=== PATIENT | female | born 1985 | race African-American/Black ===

== ENCOUNTER 2021-12-02 08:29 | Outpatient (CLI) | payer BC ==
[2021-12-02 09:39] LABS: #Basophils 0.1 10x3/uL (0.0-0.2); #Eosinphils 0.1 10x3/uL (0.0-0.5); #Monocytes 0.4 10x3/uL (0.0-1.1); #Neutrophils 2.7 10x3/uL (1.5-8.4); %Basophils 1.1 % (0.0-2.0); %Eosinophils 1.9 % (0.0-6.0); %Lymphocytes 33.1 % (18.0-47.0); %Monocytes 7.8 % (0.0-10.0); %Neutrophils 55.9 % (40.0-75.0); Hemoglobin 10.6 g/dL (12.0-15.5); Mean Corpuscular HGB CONC 32.2 g/dL (32.0-36.0); Mean Corpuscular Hemoglobin 28.3 pg (27.0-33.0); Mean Platelet Volume 10.8 fl (7.4-10.4); Platelet Count 300 10x3/uL (150-450); RBC Distribution Width 13.4 % (11.5-14.5); Red Blood Cell (RBC) Count 3.74 10x6/uL (3.90-5.03); White Blood Cell (WBC) Count 4.7 10x3/uL (3.5-10.5)
[2021-12-02 10:21] LABS: BHCG - Serum Negative (NEGATIVE); Pregs Control Background? CLEAR/WHITE (CLR/WHITE); Pregs Control Bar Appear? YES (CONTROL BAR)
== END 2021-12-02 08:30 | disposition home or self-care (01) ==
LOC: LABBT 08:29
PROVIDERS: ATTEND Surgery
DX: Z01.812 Encounter for preprocedural laboratory examination (principal); R22.31 Localized swelling, mass and lump, right upper limb; Z20.822 Contact with and (suspected) exposure to COVID-19
CPT/HCPCS: 84703; 85025; 87811

== ENCOUNTER 2021-12-05 07:55 | Day surgery (SDC) | payer BC ==
[2021-12-03 12:08] VITALS: BMI 21.8
[2021-12-05] MEDS ORDERED: CEFAZOLIN 2 GM VIAL ONE ×2 (08:13→08:51)
[2021-12-05] MEDS ORDERED: Lidocaine 1% MPF 2 ML VIAL ONE (08:13)
[2021-12-05] MEDS ORDERED: Sodium Chloride 0.9% 0 ML ONE (08:14)
[2021-12-05] MEDS ORDERED: Bupivacaine/Epinephrine 0.25% 30 ML VIAL ONE (08:46)
[2021-12-05] MEDS ORDERED: fentaNYL Citrate/PF 100 MCG/2 ML SYRINGE ONE (08:47)
[2021-12-05] MEDS ORDERED: PROPOFOL 20 ML ONE (08:47)
[2021-12-05] MEDS ORDERED: Sodium Chloride 0.9% 100 ML ONE (08:51)
[2021-12-05] MEDS ORDERED: Midazolam HCl 2 mg/2 ml Vial ONE (09:00)
[2021-12-05] MEDS ORDERED: Dexamethasone 20 MG/5 ML VIAL ONE (09:01)
[2021-12-05] MEDS ORDERED: Lidocaine 1% PF 5 ML VIAL ONE (09:01)
[2021-12-05] MEDS ORDERED: Ondansetron PF 4 MG/2 ML Vial ONE (09:01)
[2021-12-05] MEDS ORDERED: PROPOFOL 200 MG/20 ML VIAL ONE (09:01)
[2021-12-05] MEDS ORDERED: HYDROcodone/Acetaminophen 5/325 mg Tablet ONE (12:04)
== END 2021-12-05 12:19 | disposition home or self-care (01) ==
LOC: SDC 07:55
PROVIDERS: ATTEND Surgery
PROC: 0JBF0ZZ Excision of Left Upper Arm Subcutaneous Tissue and Fascia, Open Approach (ICD-10-PCS; principal; 2021-12-05)
DX: D17.22 Benign lipomatous neoplasm of skin and subcutaneous tissue of left arm (principal); Z79.899 Other long term (current) drug therapy; Z88.6 Allergy status to analgesic agent
CPT/HCPCS: 88304; J0690; J1100; J2250; J2405; J2704; J3490